=== PATIENT | female | born 1980 | race American Indian/Alaskan Native ===

== ENCOUNTER 2017-01-29 20:19 | Emergency (ER) | payer MEDICAID ==
[2017-01-29 20:19] VITALS: BMI 37.9
[2017-01-29 20:47] VITALS: BP 131/71; PULSE 86; TEMP 98.7; O2SAT 100
[2017-01-29] MEDS ORDERED: DiphenhydrAMINE 50 mg/ml Inj IM STA (21:07)
[2017-01-29] MEDS ORDERED: DiphenhydrAMINE 50 mg/ml Inj ONE (21:12)
--- NOTE | 2017-01-29 21:59 | C.PDOC ---
History Of Present Illness 36 year old female presents to the ED with complaints of diffuse itchy rash beginning earlier today. Patient states she used a new dove soap for the first time and noticed the rash soon afterwards. She denies cough, shortness of breath , lip, or throat swelling. Time Seen by Provider: 01/29/17 20:52 Chief Complaint (Nursing): Abnormal Skin Integrity History Per: Patient History/Exam Limitations: no limitations Onset/Duration Of Symptoms: Hrs Current Symptoms Are (Timing): Still Present Quality Of Symptoms: Itching Recent travel outside of the [place]: No Past Medical History Reviewed: Historical Data, Nursing Documentation, Vital Signs Vital Signs: Last Vital Signs Temp 98.7 F 01/29/17 20:43 Pulse 86 01/29/17 20:43 Resp 20 01/29/17 22:13 BP 131/71 01/29/17 20:43 Pulse Ox 100 01/30/17 02:23 Surgical History: Tonsillectomy Family History: States: Unknown Family Hx - Social History Hx Alcohol Use: Yes Hx Substance Use: No - Immunization History Hx Tetanus Toxoid Vaccination: No Hx Influenza Vaccination: No Hx Pneumococcal Vaccination: No Review Of Systems Constitutional: Negative for: Fever, Chills Respiratory: Negative for: Cough, Shortness of Breath Skin: Positive for: Rash Physical Exam - Physical Exam Appears: Non-toxic, No Acute Distress Skin: Warm, Dry, Rash (diffuse urticaria) Head: Atraumatic, Normacephalic Eye(s): bilateral: Normal Inspection, PERRL, EOMI Ear(s): Bilateral: Normal Nose: Normal, No Discharge Oral Mucosa: Moist Tongue: Normal Appearing, No Swelling Lips: Normal Appearing, No Swelling Throat: Normal, No Erythema, No Exudate Chest: Symmetrical, No Deformity Cardiovascular: Rhythm Regular, No Murmur Respiratory: Normal Breath Sounds, No Rales, No Rhonchi, No Wheezing Gastrointestinal/Abdominal: Soft, No Tenderness Extremity: Normal ROM, No Tenderness Neurological/Psych: Oriented x3 ED Course And Treatment O2 Sat by Pulse Oximetry: 100 (RA) Progress Note: Patient was given benadryl, pepcid, and prednisone. Upon re- evaluation, patient notes she is feeling better and is ready to be discharged. Patient instructed to follow up with team leader surgery if symptoms worsen. Disposition - Disposition Disposition: HOME/ ROUTINE Disposition Time: 21:58 Condition: STABLE Additional Instructions: Follow up with your PMD within 1-2 days. Return to Ed if feel worse. 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 - Scribe Statement The provider has reviewed the documentation as recorded by the Scribe Yue Gaviria All medical record entries made by the Césaribdusty were at my direction and personally dictated by me. I have reviewed the chart and agree that the record accurately reflects my personal performance of the history, physical exam, medical decision making, and the department course for this patient. I have also personally directed, reviewed, and agree with the discharge instructions and disposition.
[2017-01-29 22:14] VITALS: RESP 20
== END 2017-01-29 22:13 | disposition home or self-care (01) ==
LOC: C.ER 20:19
DX: L50.9 Urticaria, unspecified (principal)
CPT/HCPCS: 96372; 99283; J1200